=== PATIENT | female | born 1980 | race American Indian/Alaskan Native ===

== ENCOUNTER 2017-02-07 22:15 | Emergency (ER) | payer MEDICAID ==
[2017-02-07 22:15] VITALS: BMI 32.9
[2017-02-07 22:29] VITALS: RESP 16; O2SAT 99
--- NOTE | 2017-02-07 23:17 | C.PDOC ---
History Of Present Illness A 37 y/o F with a hx diabetes, c/o recurring chest pain and RUE pain for 3 days. Pain is worse with movement. Denies SOB, weakness, numbness, injury to the area, or any other complaints. Time Seen by Provider: 02/07/17 23:15 Chief Complaint (Nursing): Chest Pain History Per: Patient History/Exam Limitations: no limitations Onset/Duration Of Symptoms: Days, Intermittent Episodes Current Symptoms Are (Timing): Still Present Severity: Mild Quality: "Pain" Recent travel outside of the [place]: No Additional History Per: Patient Past Medical History Reviewed: Historical Data, Nursing Documentation, Vital Signs Vital Signs: Last Vital Signs Temp 98.0 F 02/07/17 22:23 Pulse 88 02/07/17 23:00 Resp 16 02/07/17 22:23 BP 166/109 H 02/07/17 22:23 Pulse Ox 99 02/07/17 23:34 - Medical History PMH: Diabetes, HTN, Hypercholesterolemia, Hyperlipidemia Denies: Chronic Kidney Disease - [facility] Procedures DPT ADMINISTRATION (02/24/15) DRESSING OF WOUND NEC (02/28/15) OTHER SKIN & SUBQ I D (02/26/15) Family History: States: Diabetes - Social History Hx Tobacco Use: Yes Hx Alcohol Use: No Hx Substance Use: No - Immunization History Hx Tetanus Toxoid Vaccination: No Hx Influenza Vaccination: Yes Hx Pneumococcal Vaccination: Yes Review Of Systems Except As Marked, All Systems Reviewed And Found Negative. Constitutional: Negative for: Other (Injury) Cardiovascular: Positive for: Chest Pain Respiratory: Negative for: Shortness of Breath Musculoskeletal: Positive for: Arm Pain (RUE pain) Neurological: Negative for: Weakness, Numbness Physical Exam - Physical Exam Appears: Non-toxic, No Acute Distress Skin: Warm, Dry Head: Atraumatic, Normacephalic Cardiovascular: Rhythm Regular Respiratory: Normal Breath Sounds, No Rales, No Rhonchi, No Wheezing Extremity: Normal ROM (No limitation of movement), Tenderness (Anterior right shoulder area), Capillary Refill (<2secs), No Deformity Pulses: Left Radial: Normal, Right Radial: Normal Neurological/Psych: Oriented x3, Normal Speech, Normal Cognition, Normal Motor, Normal Sensation, Other (No focal deficit) ED Course And Treatment - Laboratory Results Result Diagrams: 02/07/17 23:58 02/07/17 23:58 ECG: Interpreted By Me, Viewed By Me ECG Rhythm: Sinus Rhythm ECG Interpretation: Normal, No Acute Changes Interpretation Of ECG: NSR, normal tracings Rate From EC O2 Sat by Pulse Oximetry: 99 (RA) Pulse Ox Interpretation: Normal Medical Decision Making Medical Decision Making: Impression: A 37 y/o F with a hx diabetes, c/o recurrine chest pain and RUE pain for 3 days. Plans: -EKG -Blood labs -CXR -Toradol -IV fluids -XRAY right shoulder Disposition Doctor Will See Patient In The: Hospital Counseled Patient/Family Regarding: Diagnosis - Disposition Referrals: [facility] [Outside] Disposition: HOME/ ROUTINE Disposition Time: 00:59 Condition: IMPROVED Additional Instructions: WARM COMPRESS TO RIGHT SHOULDER adjust insulin pump according to blood glucose. Prescriptions: Naproxen [Naprosyn Tab] 375 mg PO TIDPC #20 tab Potassium Chloride [K-Dur 20] 20 meq PO DAILY #14 tab Instructions: Noncardiac Chest Pain (ED), Tendinitis (ED) Forms: [facility] ([place]) - POA Present On Arrival: None - Clinical Impression Clinical Impression: Non-cardiac chest pain, Tendinitis of right shoulder, Hypokalemia, Diabetes mellitus - Scribe Statement The provider has reviewed the documentation as recorded by the Scribe Simón whitney All medical record entries made by the Scribe were at my direction and personally dictated by me. I have reviewed the chart and agree that the record accurately reflects my personal performance of the history, physical exam, medical decision making, and the department course for this patient. I have also personally directed, reviewed, and agree with the discharge instructions and disposition.
[2017-02-08 00:01] LABS: BASO # 0.1 K/uL (0.0-0.2); BASO % 1.2 % (0.0-2.0); EOS # 0.2 K/uL (0.0-0.7); EOS % 2.1 % (0.0-4.0); HEMATOCRIT 45.5 % (34.0-47.0); LYMPH # 3.7 K/uL (1.0-4.3); MEAN CELL VOLUME 75.4 fL (81.0-99.0); MEAN CORPUSCULAR HEMOGLOBIN 24.8 pg (27.0-31.0); MEAN CORPUSCULAR HGB CONC 32.9 g/dL (33.0-37.0); MEAN PLATELET VOLUME 8.5 fL (7.2-11.7); MONO # 0.5 K/uL (0.0-0.8); MONO % 5.3 % (0.0-10.0); NRBC % 0.1 % (0.0-2.0); RED CELL DISTRIBUTION WIDTH 14.4 % (11.5-14.5); WHITE BLOOD COUNT 8.9 K/uL (4.8-10.8)
[2017-02-08 00:10] LABS: CHLORIDE 90 mmol/L (98-107)
[2017-02-08 00:11] LABS: SODIUM 134 mmol/L (132-148)
[2017-02-08 00:13] LABS: ALB/GLOB RATIO 1.2 (1.0-2.1); AST/SGOT 13 U/L (14-36); BILIRUBIN,TOTAL 1.2 mg/dL (0.2-1.3); CARBON DIOXIDE 28 mmol/L (22-30); GFR AFRICAN-AMERICAN > 60; TOTAL PROTEIN 7.5 g/dL (6.3-8.3)
[2017-02-08 00:14] LABS: ALKALINE PHOSPHATASE 96 U/L (38-126); ALT/SGPT 19 U/L (9-52); BLOOD UREA NITROGEN 12 mg/dL (7-17); CALCIUM 9.3 mg/dl (8.6-10.4); GLUCOSE,RANDOM 325 mg/dL (65-105)
[2017-02-08] MEDS ORDERED: Potassium Chloride 20 mEq/15 ml LIQ UD PO STA (00:53)
[2017-02-08 01:22] VITALS: BP 145/98; PULSE 98; TEMP 98.1
--- NOTE | 2017-02-08 08:16 | RAD ---
HISTORY: chest pain COMPARISON: No prior. TECHNIQUE: Chest PA and lateral FINDINGS: LUNGS: No acute infiltrate is identified throughout. PLEURA: No pleural effusion identified bilaterally. No pneumothorax apparent. CARDIOVASCULAR: Normal cardiac size as well as pulmonary vascular pattern. OSSEOUS STRUCTURES: No significant abnormalities. VISUALIZED UPPER ABDOMEN: Normal. OTHER FINDINGS: None. IMPRESSION: No active cardiopulmonary disease.
--- NOTE | 2017-02-08 08:45 | RAD ---
PROCEDURE: Radiographs of the Right Shoulder HISTORY: pain and tenderness COMPARISON: No prior. FINDINGS: BONES: Humeral head sub cm benign-appearing bone island JOINTS: Glenohumeral minimal arthrosis a. acromioclavicular joints preserved. SOFT TISSUES: Normal. OTHER FINDINGS: None. IMPRESSION: No fracture or dislocation. Next minimal glenohumeral joint arthrosis. Incidental humeral head benign-appearing bone island
--- NOTE | 2017-02-09 07:45 | CARD ---
APPROVED REPORT EKG Measurement Heart [id number] IN [id number] [id number] <Conclusion> Normal sinus rhythm Normal ECG
== END 2017-02-08 00:55 | disposition home or self-care (01) ==
LOC: C.ER 22:15
DX: R07.89 Other chest pain (principal); E87.6 Hypokalemia; M75.91 Shoulder lesion, unspecified, right shoulder; E11.9 Type 2 diabetes mellitus without complications
CPT/HCPCS: 71020; 73030; 80053; 84484; 85025; 85378; 93005; 96374; 99285; J1885